=== PATIENT | female | born 1990 | race Hispanic/Latino ===

== ENCOUNTER 2023-03-13 05:00 | Inpatient (IN) | payer OTHER ==
[2023-03-13] MEDS ORDERED: Ondansetron PF 4 MG/2 ML Vial IVP PRN (18:30)
[2023-03-13] MEDS ORDERED: Promethazine HCl 25 MG/ML VIAL IM PRN (18:30)
[2023-03-13] MEDS ORDERED: Lorazepam 2 MG/ML VIAL SLOW IVP PRN (18:30)
[2023-03-13] MEDS ORDERED: Acetaminophen 500 MG TAB PO PRN (18:30)
[2023-03-13] MEDS ORDERED: Ibuprofen 800 MG TAB PO PRN (18:30)
[2023-03-13] MEDS ORDERED: Misoprostol 100 MCG TAB VAG SCH (18:30)
[2023-03-13] MEDS ORDERED: Lactated Ringer's 1,000 ML IV SCH (18:30)
[2023-03-13] MEDS ORDERED: Calcium Gluc 4.6 MEQ/10 ML (100 MG/ML) SLOW IVP PRN (18:30)
[2023-03-13] MEDS ORDERED: Carboprost 250 MCG/ML AMP IM PRN (18:30)
[2023-03-13] MEDS ORDERED: Lidocaine 1% (PF) 30 ML VIAL SC PRN (18:30)
[2023-03-13] MEDS ORDERED: Diphenoxylate HCl/Atropine Tablet PO PRN (18:30)
[2023-03-13] MEDS ORDERED: Labetalol HCl 100 MG/20 ML VIAL SLOW IVP PRN ×2 (18:30)
[2023-03-13] MEDS ORDERED: Penicillin G Potassium 5 MILL.UNITS in Sodium Chloride 0.9% 100 ML IVPB SCH (18:30)
[2023-03-13] MEDS ORDERED: hydrALAZINE 20 MG/ML VIAL SLOW IVP PRN ×3 (18:30)
[2023-03-13] MEDS ORDERED: Oxytocin 30 units/NS 500 ML 500 ML IV SCH ×2 (18:30)
[2023-03-13] MEDS ORDERED: Misoprostol 200 MCG TAB PR PRN (18:30)
[2023-03-13] MEDS ORDERED: Tranexamic Acid 1,000 MG/10 ML VIAL IVP PRN (18:30)
[2023-03-13 18:43] VITALS: BMI 43.8
[2023-03-13 18:51] LABS: Hematocrit 35.7 % (34.9-44.5); Hemoglobin 11.3 g/dL (12.0-15.5); Mean Corpuscular HGB CONC 31.7 g/dL (32.0-36.0); Mean Corpuscular Hemoglobin 24.1 pg (27.0-33.0); Mean Corpuscular Volume 76.1 fl (81.6-98.3); Mean Platelet Volume 9.7 fl (7.4-10.4); Platelet Count 495 10x3/uL (150-450); Red Blood Cell (RBC) Count 4.69 10x6/uL (3.90-5.03); White Blood Cell (WBC) Count 13.8 10x3/uL (3.5-10.5)
[2023-03-13 19:04] LABS: ALT (SGPT) 11 U/L (8-55); AST (SGOT) 11 U/L (5-34); Albumin 3.1 g/dL (3.5-5.0); Alkaline Phosphatase 177 U/L (40-110); Anion Gap 15 mmol/L (10-20); BUN (Urea Nitrogen) 10 mg/dL (7.0-18.7); Bilirubin, Total 0.3 mg/dL (0.2-1.2); Calc. Creatinine Clearance 246 mL/min (70-130); Calcium 8.5 mg/dL (7.8-10.44); Carbon Dioxide 16 mmol/L (22-29); Chloride 108 mmol/L (98-107); Estimated GFR 121; Globulin 3.6 g/dL (2.4-3.5); Glucose 160 mg/dL (70-105); Potassium 4.3 mmol/L (3.5-5.1); Protein, Total 6.7 g/dL (6.0-8.3); Sodium 135 mmol/L (136-145)
[2023-03-13 19:19] LABS: HBSAg Index 0.17 S/CO (0-0.99); Hep B Surf Ag - L&D Non-Reactive S/CO (NonReactive)
[2023-03-13 19:20] LABS: Syphilis Antibody Nonreactive (Nonreactive); Syphilis Antibody Index 0.04 S/CO (<1.00 Non-Reactive)
[2023-03-13 19:56] LABS: Creatinine, Urine 215.01 mg/dL (47-110)
[2023-03-13] MEDS ORDERED: Penicillin G 2.5 MILL.units 2.5 MILL.UNITS in Premix 1 BAG IVPB SCH (22:30)
[2023-03-13] MEDS ORDERED: CEFAZOLIN 2 GM VIAL ONE (23:43)
[2023-03-13] MEDS ORDERED: Morphine PF 10 MG/10 ML VIAL ONE (23:53)
[2023-03-13] MEDS ORDERED: Dexmedetomidine 200 MCG/2 ML VIAL ONE (23:53)
[2023-03-13] MEDS ORDERED: Phenylephrine 40 MG/NS 250 ML 250 ML ONE (23:53)
[2023-03-14] MEDS ORDERED: Sodium Chloride 0.9% 10 ML ONE (00:01)
[2023-03-14] MEDS ORDERED: Azithromycin 500 MG VIAL ONE (00:14)
[2023-03-14] MEDS ORDERED: Dexamethasone 4 mg/ml Vial ONE (00:34)
[2023-03-14] MEDS ORDERED: Ketorolac Tromethamine 30 MG (1 mL) VIAL ONE (00:34)
[2023-03-14] MEDS ORDERED: Ondansetron PF 4 MG/2 ML Vial ONE (00:34)
[2023-03-14] MEDS ORDERED: Meperidine HCl/PF 25 MG (1 mL) VIAL SLOW IVP PRN (00:50)
[2023-03-14] MEDS ORDERED: Promethazine HCl 25 MG/ML VIAL IM PRN (00:50)
[2023-03-14] MEDS ORDERED: diphenhydrAMINE 50 MG/ML VIAL IVP PRN (00:50)
[2023-03-14] MEDS ORDERED: fentaNYL 50 mcg/mL 1 mL Vial SLOW IVP PRN (00:50)
[2023-03-14] MEDS ORDERED: Naloxone HCl 0.4 mg/ml Vial IVP PRN ×2 (00:50)
[2023-03-14] MEDS ORDERED: Promethazine HCl 25 MG SUPP PR PRN (00:50)
[2023-03-14] MEDS ORDERED: Moisturizing Cream (Eucerin) 113 GM JAR TOP PRN (00:50)
[2023-03-14] MEDS ORDERED: Ondansetron PF 4 MG/2 ML Vial IVP PRN ×3 (00:50→04:31)
[2023-03-14] MEDS ORDERED: Communication Order-Pharmacy FS SCH (01:00)
[2023-03-14] MEDS ORDERED: Calcium Gluc 4.6 MEQ/10 ML (100 MG/ML) SLOW IVP PRN (04:31)
[2023-03-14] MEDS ORDERED: Boostrix 0.5 ML (Tdap) VIAL (>/=7 yrs of age) IM ONE (04:31)
[2023-03-14] MEDS ORDERED: Lanolin Ointment 7 GM TUBE TOP PRN (04:31)
[2023-03-14] MEDS ORDERED: Lorazepam 2 MG/ML VIAL SLOW IVP PRN (04:31)
[2023-03-14] MEDS ORDERED: Measles/Mumps/Rubella 10 MCG/0.5 ML VIAL SC ONE (04:31)
[2023-03-14] MEDS ORDERED: Misoprostol 200 MCG TAB PR PRN (04:31)
[2023-03-14] MEDS ORDERED: hydrALAZINE 20 MG/ML VIAL SLOW IVP PRN (04:31)
[2023-03-14] MEDS ORDERED: Oxytocin 30 units/NS 500 ML 500 ML IV SCH (04:31)
[2023-03-14] MEDS: Acetaminophen 500 MG TAB PO SCH ×3 (05:22→21:57)
[2023-03-14] MEDS: Ferrous Sulfate 325 MG TAB PO SCH ×2 (07:02→21:58)
[2023-03-14] MEDS: Ketorolac Tromethamine 30 MG (1 mL) VIAL IVP SCH ×3 (07:31→19:44)
[2023-03-14] MEDS: Docusate 100 MG CAP PO SCH ×2 (07:32→19:45)
[2023-03-14] MEDS: Prenatal Vitamin 1 TAB PO SCH (07:32)
[2023-03-14] MEDS: Naloxone HCl 0.4 mg/ml Vial IV PRN ×3 (20:29→21:05)
[2023-03-15] MEDS: Ketorolac Tromethamine 30 MG (1 mL) VIAL IVP SCH (01:35)
[2023-03-15] MEDS: Acetaminophen 500 MG TAB PO SCH ×3 (05:03→21:14)
[2023-03-15 06:16] LABS: Hematocrit 24.9 % (34.9-44.5); Hemoglobin 8.2 g/dL (12.0-15.5); Mean Corpuscular HGB CONC 32.9 g/dL (32.0-36.0); Mean Corpuscular Hemoglobin 25.8 pg (27.0-33.0); Mean Corpuscular Volume 78.3 fl (81.6-98.3); Mean Platelet Volume 10.3 fl (7.4-10.4); Platelet Count 345 10x3/uL (150-450); RBC Distribution Width 15.9 % (11.5-14.5); Red Blood Cell (RBC) Count 3.18 10x6/uL (3.90-5.03); White Blood Cell (WBC) Count 12.9 10x3/uL (3.5-10.5)
[2023-03-15] MEDS ORDERED: Ibuprofen 800 MG TAB PO PRN (07:00)
[2023-03-15] MEDS: Docusate 100 MG CAP PO SCH ×2 (08:50→21:14)
[2023-03-15] MEDS: Ibuprofen 800 MG TAB PO SCH ×2 (08:50→17:11)
[2023-03-15] MEDS: Ferrous Sulfate 325 MG TAB PO SCH ×2 (08:50→21:14)
[2023-03-15] MEDS: Prenatal Vitamin 1 TAB PO SCH (08:50)
[2023-03-15] MEDS: Simethicone Chewable 80 MG TAB PO PRN ×2 (08:50→12:22)
[2023-03-15] MEDS ORDERED: Enoxaparin 40 MG (0.4 mL) SYRINGE SC SCH (12:00)
[2023-03-16] MEDS: Ibuprofen 800 MG TAB PO SCH ×3 (01:32→16:51)
[2023-03-16] MEDS: Prenatal Vitamin 1 TAB PO SCH ×2 (08:51→08:52)
[2023-03-16] MEDS: Enoxaparin 40 MG (0.4 mL) SYRINGE SC SCH (08:51)
[2023-03-16] MEDS: Acetaminophen 500 MG TAB PO SCH ×3 (08:51→21:25)
[2023-03-16] MEDS: Docusate 100 MG CAP PO SCH ×2 (08:54→21:25)
[2023-03-16] MEDS: Ferrous Sulfate 325 MG TAB PO SCH ×2 (08:54→21:25)
[2023-03-17] MEDS: Ibuprofen 800 MG TAB PO SCH ×2 (01:15→07:50)
[2023-03-17] MEDS: Acetaminophen 500 MG TAB PO SCH (05:22)
[2023-03-17] MEDS: Ferrous Sulfate 325 MG TAB PO SCH (07:50)
[2023-03-17] MEDS: Docusate 100 MG CAP PO SCH (07:50)
[2023-03-17] MEDS: Prenatal Vitamin 1 TAB PO SCH (07:50)
[2023-03-17] MEDS: Enoxaparin 40 MG (0.4 mL) SYRINGE SC SCH (07:51)
[2023-03-17 08:00] VITALS: BP 136/78; TEMP 97.9
== END 2023-03-17 13:10 | disposition home or self-care (01) | DRG 787 ==
LOC: CSHLD 17:56 → CSHPP 03-14 03:55
PROVIDERS: ADMIT Student in an Organized Health Care Education/Training Program; ATTEND Student in an Organized Health Care Education/Training Program
PROC: 10D00Z1 Extraction of Products of Conception, Low, Open Approach (ICD-10-PCS; principal; 2023-03-14)
DX: O10.92 Unspecified pre-existing hypertension complicating childbirth (principal); O23.593 Infection of other part of genital tract in pregnancy, third trimester; O98.82 Other maternal infectious and parasitic diseases complicating childbirth; O99.214 Obesity complicating childbirth; Z3A.38 38 weeks gestation of pregnancy; Z37.0 Single live birth; E66.9 Obesity, unspecified; O99.824 Streptococcus B carrier state complicating childbirth; E74.39 Other disorders of intestinal carbohydrate absorption; O99.284 Endocrine, nutritional and metabolic diseases complicating childbirth; O76 Abnormality in fetal heart rate and rhythm complicating labor and delivery; O77.0 Labor and delivery complicated by meconium in amniotic fluid; O69.81X0 Labor and delivery complicated by cord around neck, without compression, not applicable or unspecified; A59.9 Trichomoniasis, unspecified; O24.430 Gestational diabetes mellitus in the puerperium, diet controlled; O99.213 Obesity complicating pregnancy, third trimester; O99.820 Streptococcus B carrier state complicating pregnancy
CPT/HCPCS: 36415; 36416; 51702; 80053; 82570; 84156; 85025; 85027; 86780; 86850; 86900; 86901; 87340; 99284; J1100; J1650; J1885; J2274; J2310; J2405